=== PATIENT | female | born 2005 | race Two or more races ===

== ENCOUNTER 2024-02-09 10:08 | Emergency (ER) | payer MEDICAID ==
[~2024-02-09] VITALS: Ht 152.4 cm; Wt 64.9 kg
[2024-02-09 12:08] VITALS: BP 103/58; PULSE 70; RESP 14; TEMP 99; O2SAT 98
[2024-02-09 12:59] LABS: Urine Bacteria FEW /hpf (None Seen); Urine Blood 3+ /uL (Negative); Urine Clarity Clear (Clear); Urine Color Colorless (Yellow); Urine Protein, UAD Negative (Negative); Urine Specific Gravity 1.006 (1.001-1.035); Urine Urobilinogen Normal (Negative); Urine WBC 73 /hpf (0 - 5); Urine pH 6.5 (5.0-9.0)
[2024-02-09] MEDS ORDERED: PHEN-922 PO (13:05)
[2024-02-09] MEDS ORDERED: NITR-87 PO (13:05)
== END 2024-02-09 13:14 | disposition home or self-care (01) ==
LOC: ER 10:19
DX: N30.90 Cystitis, unspecified without hematuria (principal); Z79.899 Other long term (current) drug therapy
CPT/HCPCS: 81001; 81025